=== PATIENT | male | born 1965 | race Caucasian/White ===

== ENCOUNTER 2021-04-02 17:19 | Emergency (ER) | payer OTHER, SELFPAY ==
[2021-04-02 17:20] VITALS: BP 164/87; PULSE 96; RESP 18; TEMP 36.7; O2SAT 98; BMI 40.3
[2021-04-02 18:00] LABS: COVID-19 Test Negative (Negative)
[2021-04-02 18:02] VITALS: BP 151/84; PULSE 92; RESP 16; O2SAT 99
--- NOTE | 2021-04-02 18:28 | ED.GENADULT ---
HPI - General Adult General Chief complaint: Upper Respiratory Symptoms Stated complaint: flu symptoms Time Seen by Provider: 04/02/21 17:55 Source: patient Mode of arrival: ambulatory Limitations: no limitations History of Present Illness HPI narrative: Nasal congestion, shortness of breath, dyspnea exertion, cough, body aches and fatigue. Patient states he has been sick for 2 days. Complains of rhinorrhea and nasal congestion. He states he has had a cough which is productive of thick to thin clear sputum. He states that he feels short of breath at rest and has [id number] dyspnea on exertion. He states that his body aches. He denied rash. Denied tick exposure. States he is feeling fatigued. Patient does have a history of smoking 1/3 pack of cigarettes per day times 34 years. States that he has had bronchitis in the past he has had to use an inhaler in the past as well. The patient received the 2 dose Pfizr COVID-19 vaccination with his 2nd dose being approximately 2-3 weeks prior to evaluation. Related Data Previous Rx's Medication Instructions Recorded albuterol sulfate 2 puff INHALATION Q4-6H PRN #8.5 g 04/02/21 azithromycin [Zithromax Z-Fran] See Rx Instructions .ROUTE 04/02/21 .COMPLEX #6 tab prednisone 60 mg PO DAILY 5 Days #15 tab 04/02/21 Allergies Allergy/AdvReac Type Severity Reaction Status Date / Time No Known Allergies Allergy Unverified 06/06/20 15:35 [No Known Allergies*] Review of Systems Review of Systems: Yes all other systems are reviewed and are negative [facility] Past Medical History [facility] Narrative: Past medical history: None, past surgical history: None. 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 He smokes 1/3 pack of cigarettes per day times 34 years. He denies alcohol use. He denies drug use. Medical History No acute medical problems Surgical History No history of previous surgery Social History Social History Advance Directives: No Advance Directives Information Provided: Yes Physical Exam Vital Signs: Vital Signs: Last Vital Signs Temp 98.1 F 04/02/21 17:20 Pulse 92 04/02/21 18:02 Resp 16 04/02/21 18:02 BP 151/84 H 04/02/21 18:02 Pulse Ox 99 04/02/21 18:02 Body Mass Index 40.3 Const: General: cooperative and healthy appearing Orientation/consciousness: oriented to person and oriented to place Limitations: no limitations HENMT: Head: Yes normal to inspection, Yes normocephalic and Yes atraumatic Ears: external ears normal General nose exam: Normal external nose present Face and sinus: Yes normal facial exam Mouth: Normal oral and palatal mucosa present Throat: Yes posterior oropharynx normal Eyes: Periorbital: periorbital findings normal Eyelids: Yes eyelids normal Conjunctivae: conjunctivae normal Sclerae: sclerae normal Corneas: corneas normal Pupils: Equal, round and reactive pupils present Direct Ophthalmoscopy: normal light reflex Neck: Neck: Yes full ROM, Yes no lymphadenopathy, Yes no meningeal signs, Yes trachea midline and Yes supple Chest: Chest palpation & inspection: normal inspection of the chest and normal palpation of entire chest wall Resp: Effort & Inspection: normal respiratory effort and able to speak in complete sentences Auscultation: rhonchi throughout and wheezes expiratory wheezes and throughout Cardio: Rate: regular rate Rhythm: regular rhythm Heart sounds: S1 normal heart sound present, S2 normal heart sound present and no murmurs GI: Inspection: Yes normal to inspection Palpation (GI): Soft to palpation, nontender, no guarding, not rigid and No hepatosplenomegaly present : General: Yes no CVA tenderness Back/Spine/Pelvis: Back: no CVA tenderness Cervical Spine: normal cervical lordosis Thoracic/Lumbar Spine: thoracic and lumbar spine normal to inspection Skin: Lesions: no lesions Rashes: no rashes Wounds: no wounds Neuro: General: oriented to person, oriented to place and no meningeal signs Cranial nerves: Yes CN's II-XII intact bilaterally and Yes Equal, round and reactive pupils present Cognition (Neuro): normal cognition Motor exam (neuro): 5/5 motor strength present throughout Extrem: General: Yes normal to inspection and Yes full ROM Psych: Appearance: well kempt Mental Status: mental status grossly normal Speech and movement: Normal speech and movement present Affect: normal affect Attitude: cooperative Thought process: Normal thought process present Thought content: Normal thought content present Course Course Course Narrative: 55-year-old male who presents emergency department for evaluation of cough, shortness of breath, dyspnea on exertion, myalgias and fatigue. Patient has been sick for 2 days. Physical examination revealed normal vital signs except for an elevated blood pressure 164/85. Lung exam revealed diffuse wheezing and rhonchi otherwise was unremarkable. Patient's presentation is consistent with a acute bronchitis. Given his smoking history concerned that he may have a bacterial infection therefore he will be treated with Zithromax Z-Farn, prednisone 60 mg once a day for 5 days and albuterol inhaler 2 puffs every 4 hours x1 week. Patient had a negative COVID-19 test. Patient was discharged home. The patient was given verbal and printed instructions prior to discharge. The patient was advised to follow-up with their PCP in 2 days and to return to the emergency department if their symptoms get worse or if they develop any new symptoms that are concerning to them Medical Decision Making Lab Data Labs: Lab Results 04/02/21 Range/Units 17:28 COVID-19 ([facility]) Negative (Negative) COVID-19 Clin Com See Note Discharge Plan Discharge Clinical Impression: Bronchitis Patient Disposition: Home, Self-Care Instructions: Acute Bronchitis (ED) Additional Instructions: Your COVID-19 test was negative. Your symptoms and presentation are consistent with a bacterial bronchitis. Take the antibiotic Zithromax (azithromycin) 2 pills on day 1 then 1 pill each day for 5 days. Take the anti-inflammatory medication prednisone 20 mg pills, 3 pills once a day for 5 days. Use the albuterol inhaler 2 puffs every 4 hours for 1 week. This will help with your wheezing and shortness of breath. Do not take nonsteroidal anti-inflammatory medications such as ibuprofen, Motrin, Aleve, Advil, naproxen while you are taking prednisone. You can take Tylenol (acetaminophen) 500 mg pills, 2 pills every 4 to 6 hours as needed for pain. Follow-up with your doctor in 2 days. Please return to the emergency department if your symptoms get worse or if you develop any symptoms that are concerning to you. Prescriptions: New azithromycin [Zithromax Z-Fran] 250 mg tablet See Rx Instructions .ROUTE .COMPLEX Qty: 6 RF: 0 prednisone 20 mg tablet 60 mg PO DAILY 5 Days Qty: 15 RF: 0 albuterol sulfate 90 mcg/actuation HFA aerosol inhaler 2 puff inhalation Q4-6H PRN (Reason: shortness of breath or wheezing) Qty: 8.5 RF: 0 Stand Alone Forms: Work/School Release
== END 2021-04-02 19:03 | disposition home or self-care (01) ==
PROVIDERS: Emergency Provider Emergency Medicine Emergency Medical Services; PCP Family Medicine
DX: J40 Bronchitis, not specified as acute or chronic (principal); R06.02 Shortness of breath; R05 Cough; M79.10 Myalgia, unspecified site; Z79.899 Other long term (current) drug therapy; Z20.822 Contact with and (suspected) exposure to COVID-19; Z87.891 Personal history of nicotine dependence
CPT/HCPCS: 36415; 87635; 99284

== ENCOUNTER 2021-05-30 08:11 | Outpatient (REF) | payer OTHER, SELFPAY ==
[2021-05-30 09:11] LABS: Appearance Urine CLEAR; Color Urine YELLOW; Glucose Urine UA 250 MG/DL (NEG); Leukocyte Esterase Urine NEG (NEG); Nitrite Urine NEG (NEG); Specific Gravity - Urine >= 1.030 (1.005-1.025); Urine Blood NEG (NEG); Urine Ketones NEG (NEG); Urine Protein 1+ MG/DL (NEG-TRACE)
[2021-05-30 09:33] LABS: Calcium Oxalate Crystals Urine TRACE /LPF; Hyaline Casts Urine 0-2 /LPF; Mucus Urine TRACE /LPF; RBC Urine 0-2 /HPF (0); Squamous Epithelial Cell Urine TRACE /LPF; WBC Urine 0-2 /HPF (0-4)
[2021-05-30 09:38] LABS: Alanine Aminotransferase 32 U/L (0-40); Anion Gap 12 (12-20); Aspartate Amino Transferase 21 U/L (5-37); Blood Urea Nitrogen 11 mg/dL (9-16); Carbon Dioxide 27 mmol/L (22-29); Chloride 102 mmol/L (96-108); Cholesterol 162 mg/dL; Estimated Glomerular Filt Rate > 60; Glucose Fasting 285 mg/dL (60-99); HDL Cholesterol 40 mg/dL; LDL Cholesterol Calculated 108 mg/dl; Potassium 4.7 mmol/L (3.3-5.1); Sodium 136 mmol/L (135-145); Triglycerides 70 mg/dL
[2021-05-30 10:03] LABS: Prostate Specific Antigen 0.48 ng/mL (<0.05-4.0)
== END 2021-05-30 08:12 | disposition home or self-care (01) ==
LOC: HO.LAB 08:11
PROVIDERS: PCP Family Medicine; Visit Provider Family Medicine
DX: Z12.5 Encounter for screening for malignant neoplasm of prostate (principal); E78.00 Pure hypercholesterolemia, unspecified; I10 Essential (primary) hypertension; R35.0 Frequency of micturition; R73.09 Other abnormal glucose
CPT/HCPCS: 36415; 80051; 80061; 81001; 82565; 82947; 84153; 84450; 84460; 84520

== ENCOUNTER 2021-07-31 11:05 | Outpatient (REF) | payer OTHER, SELFPAY ==
[2021-07-31 12:26] LABS: Estimated Average Glucose 203 mg/dL; Hemoglobin A1c % 8.7 %
[2021-07-31 12:42] LABS: Creatinine Urine 152.24 mg/dL; Microalbum/Creatinine Ratio Ur 30.8 ug/mg cr
[2021-07-31 12:44] LABS: Glucose Fasting 145 mg/dL (60-99)
== END 2021-07-31 11:06 | disposition home or self-care (01) ==
LOC: HO.LAB 11:05
PROVIDERS: PCP Family Medicine; Visit Provider Family Medicine
DX: E11.9 Type 2 diabetes mellitus without complications (principal)
CPT/HCPCS: 36415; 82043; 82947; 83036

== ENCOUNTER 2022-05-13 08:30 | Outpatient (REF) | payer OTHER, SELFPAY ==
[2022-05-13 09:15] LABS: Estimated Average Glucose 237 mg/dL; Hemoglobin A1c % 9.9 %
[2022-05-13 09:40] LABS: Anion Gap 14 (12-20); Blood Urea Nitrogen 12 mg/dL (9-16); Carbon Dioxide 22 mmol/L (22-29); Chloride 105 mmol/L (96-108); Estimated Glomerular Filt Rate > 60; Glucose Fasting 292 mg/dL (60-99); Potassium 4.2 mmol/L (3.3-5.1); Sodium 137 mmol/L (135-145)
[2022-05-13 11:41] LABS: Creatinine Urine 253.69 mg/dL; Microalbum/Creatinine Ratio Ur 23.2 ug/mg cr
== END 2022-05-13 08:31 | disposition home or self-care (01) ==
LOC: HO.LAB 08:30
PROVIDERS: PCP Family Medicine; Visit Provider Family Medicine
DX: I10 Essential (primary) hypertension (principal); E11.9 Type 2 diabetes mellitus without complications; E78.00 Pure hypercholesterolemia, unspecified
CPT/HCPCS: 36415; 80051; 82043; 82565; 82947; 83036; 84520

== ENCOUNTER 2023-03-01 10:23 | Day surgery (SDC) | payer OTHER, SELFPAY ==
--- NOTE | 2023-02-26 12:11 | HO.ANESPROP2 ---
Documented by User: Apryl Bernardo NP 02/26/23 12:12 HPI - Anesthesia Eval Consult details Narrative: 57yo M for Upper Endoscopy and Colonoscopy [facility] Past Medical History Medical History (Updated 02/26/23 @ 12:12 by Apryl Bernardo NP) BPH (benign prostatic hyperplasia) Depression Diabetes GERD (gastroesophageal reflux disease) Surgical History Surgical History (Updated 02/26/23 @ 12:12 by Apryl Bernardo NP) H/O removal of cyst Social History Social History Patient Tobacco Use Status: Current everyday Tobacco user Tobacco use type: Cigarette Cigarette Packs Per Day: 0.5 Cigarettes Per Day: 10.0 Years Smoked: 36 Smoked in Last 30 Days: Yes Use of substances other than those prescribed or required for medical reasons: No Are you DNR?: No Advance Directives: No Advance Directives Information Provided: Yes Meds Allergies Allergy/AdvReac Type Severity Reaction Status Date / Time No Known Allergies Allergy Verified 03/01/23 11:01 [No Known Allergies*] Home Medications Medication Instructions Recorded Confirmed Last Taken Type cyclobenzaprine 5 mg tablet 5 mg PO BEDTIME PRN low back pain 02/26/23 03/01/23 Unknown History metformin 1,000 mg tablet 1,000 mg PO BEDTIME 02/26/23 03/01/23 02/27/23 History omeprazole 20 mg capsule,delayed 20 mg PO DAILY 02/26/23 03/01/23 Unknown History release tamsulosin 0.4 mg capsule 0.4 mg PO BEDTIME 02/26/23 03/01/23 Unknown History trazodone 50 mg tablet 25 mg PO DAILY 02/26/23 03/01/23 Unknown History Exam Exam Date and Time: February 26, 2023 1211 Assessment and Plan Assessment Anesthesia Assessment: Chart Reviewed Documented by User: Beverly Bob MD 03/01/23 14:23 [facility] Past Medical History Medical History (Updated 02/26/23 @ 12:12 by Apryl Bernardo NP) BPH (benign prostatic hyperplasia) Depression Diabetes GERD (gastroesophageal reflux disease) Family History Family history of problems with anesthesia: No Surgical History Surgical History (Updated 02/26/23 @ 12:12 by Apryl Bernardo NP) H/O removal of cyst History of Problems with Anesthesia: No Social History Social History Patient Tobacco Use Status: Current everyday Tobacco user Tobacco use type: Cigarette Cigarette Packs Per Day: 0.5 Cigarettes Per Day: 10.0 Years Smoked: 36 Smoked in Last 30 Days: Yes Use of substances other than those prescribed or required for medical reasons: No Are you DNR?: No Advance Directives: No Advance Directives Information Provided: Yes Meds Allergies Allergy/AdvReac Type Severity Reaction Status Date / Time No Known Allergies Allergy Verified 03/01/23 11:01 [No Known Allergies*] Home Medications Medication Instructions Recorded Confirmed Last Taken Type cyclobenzaprine 5 mg tablet 5 mg PO BEDTIME PRN low back pain 02/26/23 03/01/23 Unknown History metformin 1,000 mg tablet 1,000 mg PO BEDTIME 02/26/23 03/01/23 02/27/23 History omeprazole 20 mg capsule,delayed 20 mg PO DAILY 02/26/23 03/01/23 Unknown History release tamsulosin 0.4 mg capsule 0.4 mg PO BEDTIME 02/26/23 03/01/23 Unknown History trazodone 50 mg tablet 25 mg PO DAILY 02/26/23 03/01/23 Unknown History Exam Airway Mallampati Class: III TM Dist: >3cm Neck ROM: Full Loose/Missing/Broken Teeth: No Heart: rr Lungs: cta Assessment and Plan Assessment Anesthesia Assessment: Anesthesia Plan Discussed Final Anesthetic Review Family History of Problems with Anesthesia: No History of Problems with Anesthesia: No NPO: Yes ASA Class: II Final Preanesthetic Review: No Changes in Pt Med Stat, Meds/Allgs Chart Reviewed, Consent Obtained/Reviewed and Anes Risks/Benef Reviewed Patient Risk: Low Procedure Risk: Low Anesthetic Plan Anesthetic Plan: MAC: Disposition: Standard PACU
[2023-03-01 11:02] VITALS: BMI 38.9
[2023-03-01 11:12] LABS: Glucose, Whole Blood 156 mg/dL (60-115)
[2023-03-01 11:19] VITALS: BP 146/77; PULSE 95; RESP 16; TEMP 36.9; O2SAT 98
[2023-03-01] MEDS: Lactated Ringers 1,000 ML 100 ML IVCONT (11:31)
--- NOTE | 2023-03-01 13:30 | PM.OP ---
Brief Operative Note Date of Service: 03/01/23 Pre-op diagnosis: GERD, Screening Post-op diagnosis: other (Hiatal hernia, GERD, Gastritis, Duodenitis, Diverticulosis) Procedure: EGD with biopsies, Colonoscopy to the cecum and TI Surgeon: Adan Walden Anesthesia: MAC Was an Structural Analysis Engineer used for this Procedure?: No Estimated blood loss (mL): 2.0 Pathology: other (A. Gastric antrum B. EG Junction at 36cm) Condition: stable Disposition: PACU
[2023-03-01 13:31] VITALS: BP 101/63; PULSE 89; RESP 16; TEMP 36.4; O2SAT 91
[2023-03-01 13:33] VITALS: O2SAT 100
[2023-03-01 13:46] VITALS: BP 115/76; PULSE 94; RESP 18; TEMP 36.6; O2SAT 97
--- NOTE | 2023-03-01 14:10 | OP_ITS ---
DATE OF SERVICE: 03/01/2023 SURGEON: Adan Walden MD INDICATIONS: The patient presents for evaluation of chronic gastroesophageal reflux and colorectal cancer screening. Full consent has been obtained from him for this, including risks of bleeding and perforation. PREOPERATIVE DIAGNOSIS: Chronic gastroesophageal reflux and colorectal cancer screening. POSTOPERATIVE DIAGNOSIS: PROCEDURE PERFORMED: Esophagogastroduodenoscopy with biopsies and colonoscopy to the cecum and terminal ileum. ESTIMATED BLOOD LOSS: COMPLICATIONS: ANESTHESIA: Monitored anesthesia care. ASSISTANTS: SPECIMENS: POSTOPERATIVE DIAGNOSES: Chronic gastroesophageal reflux and colorectal cancer screening, hiatal hernia, gastritis, duodenitis, diverticulosis, internal hemorrhoids. DESCRIPTION OF PROCEDURE: The patient was placed in the left lateral decubitus position. The Olympus video gastroscope was passed in the posterior oropharynx and upper esophagus under direct vision. The scope was passed slowly into the distal esophagus. The gastroesophageal junction appeared at 38 cm. There was some slight irregularity and erythema, but no evidence of esophagitis nor any definitive evidence of Mccullough esophagus. The scope entered the stomach. There was a small hiatal hernia. The scope was advanced to the pylorus, and the duodenum was cannulated to the descending portion. The duodenum including the bulb was carefully inspected. There was duodenitis in the duodenal bulb with areas of erythema and edema but no ulceration nor mass. The scope was withdrawn back to the stomach. The gastric antrum had areas of edema, erythema, and some friability. There was no ulceration, erosions, nor mass. There was good peristalsis. Biopsies were obtained from the gastric antrum. The scope was retroflexed visualizing the proximal stomach carefully which appeared normal, without any sign of mass or ulceration. The scope was straightened. The scope was withdrawn back in the esophagus. Biopsies were obtained from the gastroesophageal junction at 36 cm. Proximal to this the esophageal mucosa appeared normal. The scope was withdrawn from the patient. He was turned around for the colonoscopy. The digital rectal exam revealed no abnormalities. The Olympus video pediatric colonoscope was entered into the rectum and advanced easily to the cecum. Once in the cecum, I did identify normal-appearing cecal pouch with appendiceal orifice and a normal-appearing ileocecal valve. The terminal ileum was cannulated and appeared normal. Scope was withdrawn back in the colon. The entire cecum and ileocecal valve appeared normal. The scope was then slowly withdrawn assessing all mucosal surfaces carefully. After irrigation and suctioning, preparation was excellent throughout the colon. I did not visualize any sign of polyps, colitis, nor angiodysplasia. There was a mild amount of sigmoid diverticulosis. In the rectum, the scope was retroflexed visualizing small internal hemorrhoids, but no other pathology. The rectal mucosa appeared normal. The scope was straightened and withdrawn from the patient. He tolerated both procedures well and was returned to the recovery area in stable condition. IMPRESSION: 1. Hiatal hernia, gastroesophageal reflux. 2. Gastritis. 3. Duodenitis. 4. Diverticulosis. 5. Internal hemorrhoids. PLAN: The results of the biopsies will be checked. He was advised to continue his omeprazole as that is working well for his reflux. I would recommend a repeat colonoscopy in 10 years for further screening. He was advised not to use any aspirin or NSAIDs for at least 1 week. He will otherwise see me on a p.r.n. basis. MD REMBERTO Mack/GARRETT / [id number]
== END 2023-03-01 14:14 | disposition home or self-care (01) ==
PROVIDERS: PCP Family Medicine; Visit Provider Internal Medicine
PROC: (CPT 45378; principal; 2023-03-01 11:30)
DX: Z12.11 Encounter for screening for malignant neoplasm of colon (principal); K57.30 Diverticulosis of large intestine without perforation or abscess without bleeding; K64.8 Other hemorrhoids; K21.9 Gastro-esophageal reflux disease without esophagitis; K29.50 Unspecified chronic gastritis without bleeding; K29.80 Duodenitis without bleeding; K44.9 Diaphragmatic hernia without obstruction or gangrene; N40.0 Benign prostatic hyperplasia without lower urinary tract symptoms; E11.9 Type 2 diabetes mellitus without complications; F32.A Depression, unspecified; Z79.84 Long term (current) use of oral hypoglycemic drugs; Z79.899 Other long term (current) drug therapy; F17.210 Nicotine dependence, cigarettes, uncomplicated
CPT/HCPCS: 45378; 43239; 82947; 88305; 88342

== ENCOUNTER 2023-12-27 16:08 | Emergency (ER) | payer SELFPAY ==
--- NOTE | ~2023-12-27 | CT_ITS ---
EXAMINATION: CT ABDOMEN AND PELVIS WITHOUT CONTRAST CLINICAL INFORMATION: Left-sided flank pain radiating to the groin. COMPARISON: CT abdomen and pelvis from 11/03/2016. TECHNIQUE: Multidetector volumetric imaging was performed from the lung bases to the pubic without contrast. Sagittal and coronal reformatted images were obtained on the technologist workstation. This CT examination was performed using dose optimization techniques as appropriate, variously including the following: *Automated exposure control. *Adjustment of mA and/or kV according to patient size (this includes techniques or standardized protocols for targeted exams where dose is matched to indication/reason for exam; i.e. extremities or head). *Use of iterative reconstruction technique. DLP: 862 mGy-cm FINDINGS: LUNG BASES: No abnormalities of the visualized lung bases. No demonstrated abnormalities of the visualized cardiac structures. ABDOMEN/PELVIS: Liver, Biliary Ducts, and Gallbladder: The unenhanced liver is normal in size and attenuation without focal hepatic lesions or biliary ductal dilatation. The gallbladder is physiologically distended without radiopaque gallstones, pericholecystic fluid, or significant gallbladder wall thickening. Pancreas: The pancreas is normal in appearance. Adrenal Glands: The adrenal glands are normal in appearance. Spleen: The spleen is normal in appearance. Kidneys and Ureters: The unenhanced kidneys are normal in size. There is a 0.5 cm obstructive stone in the mid left ureter at the level of L4. Associated moderate left-sided hydronephrosis and proximal hydroureter. This stone is positioned 13.7 cm from the cutaneous surface. No demonstrated additional nephrolithiasis. The stomach is not well demonstrated on leaf sorter imaging. No right-sided hydronephrosis/hydroureter. There is a 4.3 cm simple cyst in the interpolar region of the right kidney (no follow-up imaging recommended based on current guidelines at the time of examination). Urinary Bladder: The urinary bladder is partially distended without focal wall thickening. No bladder calculi are demonstrated. Gastrointestinal System: The stomach is decompressed and therefore not well evaluated on this exam. The small bowel is of normal caliber. The colon is normal in appearance without focal wall thickening or pericolonic inflammatory change. Normal appendix. Genitourinary: Coarse calcifications of an otherwise normal-appearing prostate gland. Intra-abdominal and Retroperitoneal Spaces: No intra-abdominal free fluid collections or gas. No mesenteric, retroperitoneal, or inguinal lymphadenopathy. VASCULATURE: The abdominal aorta is of normal contour and caliber with moderate calcific atherosclerotic disease. MUSCULOSKELETAL: Mild to moderate multilevel degenerative changes of the spine. No lytic or sclerotic osseous lesions demonstrated. No soft tissue masses demonstrated. CT/CT abdomen pelvis wo IV con IMPRESSION: Obstructive 0.5 cm stone within the mid left ureter. Moderate left-sided hydronephrosis and proximal hydroureter.
--- NOTE | ~2023-12-27 | US_ITS ---
EXAMINATION: US SCROTUM CLINICAL INFORMATION: Testicular pain. COMPARISON: None available. TECHNIQUE: A sonogram of the scrotum was performed assessing lora-scale appearance and color Doppler flow. Spectral Doppler analysis of the arterial and venous flow were performed in the testes bilaterally. FINDINGS: RIGHT: Right testicle measures 4.8 x 2.3 x 3.5 cm, volume 20 mL. No focal testicular parenchymal lesions are visualized. Multiple testicular cysts. One of the testicular cysts measuring 0.6 x 0.4 x 0.4 cm is complex with low level internal echoes. Spectral Doppler analysis of the arterial and venous flow is normal in the right testis. Right epididymal head is normal in size. No right hydrocele or varicocele is seen. Right epididymal Doppler flow is normal. Multiple small epididymal head cysts. LEFT: Left testicle measures 4.4 x 2.1 x 2.6 cm, volume 13 mL. No focal testicular parenchymal lesions are visualized.Multiple testicular cysts. Spectral Doppler analysis of the arterial and venous flow is normal in the left testis. Left epididymal head is normal in size. No left hydrocele or varicocele is seen. Left epididymal Doppler flow is normal. Multiple small epididymal head cysts. US/US scrotum doppler IMPRESSION: 1. Multiple bilateral testicular cysts. One of the right testicular cysts measuring 0.6 x 0.4 x 0.4 cm is complex with low level internal echoes. 2. Multiple bilateral epididymal head cysts.
--- NOTE | ~2023-12-27 | US_ITS ---
EXAMINATION: US SCROTUM CLINICAL INFORMATION: Testicular pain. COMPARISON: None available. TECHNIQUE: A sonogram of the scrotum was performed assessing lora-scale appearance and color Doppler flow. Spectral Doppler analysis of the arterial and venous flow were performed in the testes bilaterally. FINDINGS: RIGHT: Right testicle measures 4.8 x 2.3 x 3.5 cm, volume 20 mL. No focal testicular parenchymal lesions are visualized. Multiple testicular cysts. One of the testicular cysts measuring 0.6 x 0.4 x 0.4 cm is complex with low level internal echoes. Spectral Doppler analysis of the arterial and venous flow is normal in the right testis. Right epididymal head is normal in size. No right hydrocele or varicocele is seen. Right epididymal Doppler flow is normal. Multiple small epididymal head cysts. LEFT: Left testicle measures 4.4 x 2.1 x 2.6 cm, volume 13 mL. No focal testicular parenchymal lesions are visualized.Multiple testicular cysts. Spectral Doppler analysis of the arterial and venous flow is normal in the left testis. Left epididymal head is normal in size. No left hydrocele or varicocele is seen. Left epididymal Doppler flow is normal. Multiple small epididymal head cysts. US/US scrotum IMPRESSION: 1. Multiple bilateral testicular cysts. One of the right testicular cysts measuring 0.6 x 0.4 x 0.4 cm is complex with low level internal echoes. 2. Multiple bilateral epididymal head cysts.
[2023-12-27 16:52] VITALS: BP 153/85; PULSE 91; RESP 20; TEMP 37.1; O2SAT 98; BMI 37.7
--- NOTE | 2023-12-27 16:55 | ED_ITS ---
HPI - General Adult General Chief complaint: Urogenital-Male Stated complaint: left testicle pain radiating to back Time Seen by Provider: 12/27/23 19:30 Source: patient, RN notes reviewed and old records reviewed Mode of arrival: ambulatory History of Present Illness HPI narrative: 58-year-old male presents for evaluation of left testicular pain. He reports his symptoms started 3 days ago. The pain radiates through to his back. Currently the pain is an 8/10 and stabbing He denies any swelling to the scrotum, redness or skin changes. Denies any difficulty urinating, blood in the urine Denies any fevers, chills. No abdominal pain. No new sexual partners Related Data Home Medications ?Medication ?Instructions ?Recorded ?Confirmed cyclobenzaprine 5 mg tablet 5 mg PO BEDTIME PRN low back pain 02/26/23 03/01/23 metformin 1,000 mg tablet 1,000 mg PO BEDTIME 02/26/23 03/01/23 omeprazole 20 mg capsule,delayed 20 mg PO DAILY 02/26/23 03/01/23 release tamsulosin 0.4 mg capsule 0.4 mg PO BEDTIME 02/26/23 03/01/23 trazodone 50 mg tablet 25 mg PO DAILY 02/26/23 03/01/23 Previous Rx's ?Medication ?Instructions ?Recorded albuterol sulfate 90 mcg/actuation 2 puff inhalation Q4-6H PRN 04/02/21 aerosol inhaler shortness of breath or wheezing #8.5 grams ondansetron 4 mg disintegrating 4 mg PO Q8H PRN nausea and 12/27/23 tablet vomiting #20 tabs oxycodone 5 mg tablet 5 mg PO Q6H PRN severe pain (scale 12/27/23 score 7-10) #12 tabs tamsulosin 0.4 mg capsule (Flomax) 0.4 mg PO DAILY #7 caps 12/27/23 Allergies Allergy/AdvReac Type Severity Reaction Status Date / Time No Known Allergies Allergy Verified 12/27/23 16:53 [No Known Allergies*] Review of Systems 2 Constitutional: Constitutional: Denies body ache(s), Denies chills and Denies fever(s) ENT: Denies sore throat Cardiovascular: Cardiovascular: Denies chest pain and Denies dyspnea Respiratory: Respiratory: Denies cough and Denies dyspnea Gastrointestinal: Gastrointestinal: Denies abdominal pain, Denies nausea and Denies vomiting Genitourinary: Genitourinary: Denies genital lesions, Reports genital pain, Denies dysuria, Reports flank pain, Denies penile discharge, Denies scrotal swelling, Denies testicular mass and Reports testicular pain Musculoskeletal: Musculoskeletal: Reports back pain Integumentary/Breasts: Skin/Breast: Denies rash PMFSH Past Medical History Medical History (Updated 12/27/23 @ 23:21 by Alex Mariano) Depression BPH (benign prostatic hyperplasia) GERD (gastroesophageal reflux disease) Diabetes Surgical History (Updated 02/26/23 @ 12:12 by Apryl Bernardo NP) H/O removal of cyst Social History Social History Patient Tobacco Use Status: Current everyday Tobacco user Tobacco use type: Cigarette Cigarette Packs Per Day: 0.5 Cigarettes Per Day: 10.0 Years Smoked: 36 Advance Directives: No Advance Directives Information Provided: No Physical Exam ED Vital Signs: Vital Signs - 24 hr 12/27/23 16:52 12/27/23 20:26 12/27/23 22:46 Temperature 98.8 F 98.4 F 97.8 F Pulse Rate 91 91 92 Respiratory Rate 20 14 14 Blood Pressure 153/85 H 151/88 H 128/78 Pulse Oximetry 98 99 98 Oxygen Delivery Method Room Air Room Air Room Air BMI result Body Mass Index 37.7 Const General: healthy appearing, comfortable, no acute distress, alert and awake Nutritional Appearance: well nourished Orientation/consciousness: [facility]3 [facility]: Yes normocephalic and Yes atraumatic Eyes Eyelids: Yes eyelids normal Conjunctivae: conjunctivae normal Sclerae: sclerae normal Corneas: corneas normal Pupils: Equal, round and reactive pupils present EOM: EOMs intact bilaterally Neck Neck: Yes full ROM Resp Effort & Inspection: normal respiratory effort, able to speak in complete sentences and not labored GI Inspection: No distended Palpation (GI): Soft to palpation, not firm, nontender, no guarding and not rigid Other: No palpable inguinal hernia Penis: normal penis Meatus: meatus normal, no meatla discharge and No Blood at meatus present Scrotum: scrotum normal, no ecchymosis, not edematous, not erythematous, no masses and no scrotal swelling Testes: not enlarged, no epidiymal masses, no epidiymal tenderness, no testicular mass, no testicular swelling and no testicular tenderness Skin General skin exam: elasticity normal Neuro General: patient oriented x3 Cranial nerves: Yes Equal, round and reactive pupils present and Yes Bilaterally intact EOM present Cognition (Neuro): normal cognition Extrem Other: Moving all extremities well without any obvious deformities Course Course Course Narrative: RME: 58-year-old male presents ED for left testicular pain for 1 week without any trauma. Patient denies any penile discharge or penile lesions. Patient denies any abdominal pain. Labs ultrasound ordered. Reevaluation(s) Reevaluation #1: Patient's CT scan shows an obstructing 5 mm stone in the left mid ureter. This is more likely to cause the patient's significant pain rather than the testicular cyst. I explained this to the patient. The patient's urine is totally clear, no evidence of blood or infection, his renal function was within normal limits. The patient can still safely be discharged home. Time: 23:18 Medications Administered Discontinued Medications Generic Name Dose Route Start Last Admin Trade Name Freq PRN Reason Stop Dose Admin Ibuprofen 600 mg 12/27/23 19:41 12/27/23 19:48 Ibuprofen 600 Mg Tablet PO 12/27/23 19:42 600 mg ONCE ONE Administration Medical Decision Making Medical Decision Making [facility] Narrative: 58-year-old male presents for evaluation of left testicular pain. He has an unremarkable physical exam. His labs show no evidence of leukocytosis or left shift. Chemistry shows normal renal function, electrolytes within normal limits. Scrotal ultrasound which did not show any evidence of torsion. There is normal arterial. There were bilateral testicular and epididymal cysts. No evidence epididymitis. Patient's gonorrhea and chlamydia testing was negative. Given the level of the patient's reported pain, we will get a CT scan of the abdomen pelvis to evaluate for other pathology. There are no signs of infectious pathology Differential Diagnosis Differential Diagnoses: The differential diagnosis associated with the presentation includes Hydrocele Varicocele Inguinal hernia Obstructive uropathy Pyelonephritis Cystitis Gume's gangrene Scrotal cellulitis Lab Data [facility] Lab Attestation statement: I reviewed the patient's lab results. See above 12/27/23 17:10 12/27/23 17:10 Labs: Lab Results 12/27/23 Range/Units 17:10 WBC 9.9 (4.8-10.8) X10*3/uL RBC 4.98 (4.60-5.80) X10*6/uL Hgb 15.6 (14.0-18.0) g/dl Hct 43.2 (42.0-52.0) % MCV 86.7 (80.0-98.0) fL MCH 31.3 (27.0-33.0) pg MCHC 36.1 H (31.0-36.0) g/dl RDW 12.3 (11.0-16.0) % Plt Count 270 (160-400) X10*3/uL MPV 9.9 (9.4-12.4) fL Immature Gran % (Auto) 0.4 (0.0-0.4) % Neut % (Auto) 45.4 (45-73) % Lymph % (Auto) 45.6 H (20-40) % [place] % (Auto) 6.2 (2-11) % Eos % (Auto) 1.7 (0-4) % Baso % (Auto) 0.7 (0-2) % Lymph # (Auto) 4.5 (1.2-4.9) X10*3/uL [place] # (Auto) 0.6 (0.1-1.2) X10*3/uL Eos # (Auto) 0.2 (0.0-0.4) X10*3/uL Baso # (Auto) 0.1 (0.0-0.2) X10*3/uL Abs Immat Gran (auto) 0.04 H (0.00-0.03) X10*3/uL Absolute Neuts (auto) 4.5 (2.0-8.3) x10*3/uL Absolute Nucleated RBC 0.000 (0.0-0.012) X10*3/uL Nucleated RBC % (auto) 0.0 (0.0-0.2) /100WBC Smear Tech's Comments VERIFIED Sodium 137 (135-145) mmol/L Potassium 4.1 (3.3-5.1) mmol/L Chloride 105 (96-108) mmol/L Carbon Dioxide 26 (22-29) mmol/L Anion Gap 10 L (12-20) BUN 10 (9-16) mg/dL Creatinine 0.90 (0.5-1.4) mg/dL Estim Creat Clear Calc 111.5 Estimated GFR > 60 Random Glucose 174 H (60-115) mg/dL Calcium 10.6 H (8.4-10.2) mg/dL Total Bilirubin 0.3 (0.0-1.0) mg/dL AST 18 (5-37) U/L ALT 24 (0-40) U/L Alkaline Phosphatase 128 H (39-117) U/L Total Protein 8.2 H (6.5-8.0) g/dL Albumin 4.1 (3.5-5.0) g/dL Urine Color Yellow Urine Appearance Clear Urine pH 6.0 (5.0-9.0) Ur Specific [place] 1.015 (1.005-1.025) Urine Protein Negative (Neg-Trace) mg/dL Urine Glucose (UA) Negative (Negative) mg/dL Urine Ketones Negative (Negative) mg/dL Urine Blood Negative (Negative) Urine Nitrite Negative (Negative) Ur Leukocyte Esterase Negative (Negative) Chlam trachomat DNA PCR NOT DETECTED (Not Detect.) N.gonorrhoeae DNA (PCR) NOT DETECTED (Not Detect.) Radiology Impression Discussion of test interpretation with radiology: I have reviewed the radiologist's reading. Radiologist Impression: IMPRESSION: 1. Multiple bilateral testicular cysts. One of the right testicular cysts measuring 0.6 x 0.4 x 0.4 cm is complex with low level internal echoes. 2. Multiple bilateral epididymal head cysts. Discharge Plan Discharge Clinical Impression: Left testicular pain, Kidney stone on left side Patient Disposition: Home, Self-Care Instructions: Kidney Stones (ED) Additional Instructions: As discussed, your ultrasound showed cysts on both testicles. These do not appear to be infectious and are likely not the cause of your pain You also have a 5 mm kidney stone on the left side This should pass on its own. Take Flomax daily for the next 7 days. Use ibuprofen/Tylenol as needed for pain You may use oxycodone for more severe, breakthrough pain This may make you sleepy, do not drink alcohol or drive after taking it Use Zofran as needed for nausea/vomiting You may follow-up with Dr. Caldera regarding the testicular cysts and the kidney stones Prescriptions: New ondansetron 4 mg tablet,disintegrating 4 mg PO Q8H PRN (Reason: nausea and vomiting) Qty: 20 0RF tamsulosin [Flomax] 0.4 mg capsule 0.4 mg PO DAILY Qty: 7 0RF oxycodone 5 mg tablet 5 mg PO Q6H PRN (Reason: severe pain (scale score 7-10)) Qty: 12 0RF Rx Instructions: Partial Fill upon patient request. No Action albuterol sulfate 90 mcg/actuation HFA aerosol inhaler 2 puff inhalation Q4-6H PRN (Reason: shortness of breath or wheezing) Qty: 8.5 0RF trazodone 50 mg tablet 25 mg PO DAILY tamsulosin 0.4 mg capsule 0.4 mg PO BEDTIME metformin 1,000 mg tablet 1,000 mg PO BEDTIME omeprazole 20 mg capsule,delayed release(DR/EC) 20 mg PO DAILY cyclobenzaprine 5 mg tablet 5 mg PO BEDTIME PRN (Reason: low back pain) Referrals: Jones Caldera MD [Physician] - (Testicular cysts, left obstructive uropathy) Stand Alone Forms: Work/School Release Print Language: Polish
[2023-12-27 17:19] LABS: Basophils Absolute Auto 0.1 X10*3/uL (0.0-0.2); Basophils Percent Auto 0.7 % (0-2); Eosinophils Absolute Auto 0.2 X10*3/uL (0.0-0.4); Eosinophils Percent Auto 1.7 % (0-4); Hematocrit 43.2 % (42.0-52.0); Hemoglobin 15.6 g/dl (14.0-18.0); Imm Gran Abs Auto 0.04 X10*3/uL (0.00-0.03); Imm Gran Pct Auto 0.4 % (0.0-0.4); Lymphocytes Absolute Auto 4.5 X10*3/uL (1.2-4.9); Lymphocytes Percent Auto 45.6 % (20-40); MANUAL DIFF FLAG SCAN; Mean Corpuscular HGB Conc 36.1 g/dl (31.0-36.0); Mean Corpuscular Hemoglobin 31.3 pg (27.0-33.0); Mean Corpuscular Volume 86.7 fL (80.0-98.0); Mean Platelet Volume 9.9 fL (9.4-12.4); Monocytes Absolute Auto 0.6 X10*3/uL (0.1-1.2); Monocytes Percent Auto 6.2 % (2-11); Neutrophils Absolute Auto 4.5 x10*3/uL (2.0-8.3); Neutrophils Percent Auto 45.4 % (45-73); Platelet Count 270 X10*3/uL (160-400); Red Blood Count 4.98 X10*6/uL (4.60-5.80); Red Cell Distribution Width 12.3 % (11.0-16.0); SCAN SMEAR FLAG 1; White Blood Count 9.9 X10*3/uL (4.8-10.8)
[2023-12-27 17:22] LABS: Appearance Urine Clear; Color Urine Yellow; Glucose Urine UA Negative (Negative); Leukocyte Esterase Urine Negative (Negative); Nitrite Urine Negative (Negative); Specific Gravity - Urine 1.015 (1.005-1.025); Urine Blood Negative (Negative); Urine Ketones Negative (Negative); Urine Protein Negative (Neg-Trace)
[2023-12-27 17:35] LABS: Alanine Aminotransferase 24 U/L (0-40); Albumin Level 4.1 g/dL (3.5-5.0); Alkaline Phosphatase 128 U/L (39-117); Anion Gap 10 (12-20); Aspartate Amino Transferase 18 U/L (5-37); Bilirubin Total 0.3 mg/dL (0.0-1.0); Blood Urea Nitrogen 10 mg/dL (9-16); Calcium 10.6 mg/dL (8.4-10.2); Carbon Dioxide 26 mmol/L (22-29); Chloride 105 mmol/L (96-108); Creatinine Clr Calc Pharmacy 111.5; Estimated Glomerular Filt Rate > 60; Glucose Random 174 mg/dL (60-115); Potassium 4.1 mmol/L (3.3-5.1); Sodium 137 mmol/L (135-145); Total Protein 8.2 g/dL (6.5-8.0)
[2023-12-27 17:42] LABS: SLIDE REVIEW VERIFIED
[2023-12-27 18:52] LABS: CT PCR NOT DETECTED (Not Detect.); NG PCR NOT DETECTED (Not Detect.)
[2023-12-27] MEDS: Ibuprofen 600 MG TABLET PO (19:48)
[2023-12-27 20:26] VITALS: BP 151/88; PULSE 91; RESP 14; TEMP 36.9; O2SAT 99
[2023-12-27 22:46] VITALS: BP 128/78; PULSE 92; RESP 14; TEMP 36.6; O2SAT 98
[2023-12-27 23:38] VITALS: BP 128/78; PULSE 92; RESP 14; TEMP 36.6; O2SAT 98
== END 2023-12-27 23:39 | disposition home or self-care (01) ==
PROVIDERS: Physician Assistant; Emergency Provider Emergency Medicine; PCP Family Medicine
DX: N20.1 Calculus of ureter (principal); N50.812 Left testicular pain; E11.9 Type 2 diabetes mellitus without complications
CPT/HCPCS: 0353U; 36415; 74176; 76870; 80053; 81003; 85025; 93975; 99284

== ENCOUNTER 2024-12-22 11:03 | Outpatient (REF) | payer OTHER, SELFPAY ==
[2024-12-22 11:32] LABS: MANUAL DIFF FLAG NO
[2024-12-22 12:19] LABS: Basophils Absolute Auto 0.1 X10*3/uL (0.0-0.2); Basophils Percent Auto 0.9 % (0-2); Eosinophils Absolute Auto 0.1 X10*3/uL (0.0-0.4); Eosinophils Percent Auto 1.8 % (0-4); Hematocrit 45.6 % (42.0-52.0); Hemoglobin 16.2 g/dl (14.0-18.0); Imm Gran Abs Auto 0.03 X10*3/uL (0.00-0.03); Imm Gran Pct Auto 0.4 % (0.0-0.4); Lymphocytes Absolute Auto 3.3 X10*3/uL (1.2-4.9); Lymphocytes Percent Auto 42.8 % (20-40); Mean Corpuscular HGB Conc 35.5 g/dl (31.0-36.0); Mean Corpuscular Hemoglobin 30.7 pg (27.0-33.0); Mean Corpuscular Volume 86.4 fL (80.0-98.0); Mean Platelet Volume 10.3 fL (9.4-12.4); Monocytes Absolute Auto 0.5 X10*3/uL (0.1-1.2); Monocytes Percent Auto 6.5 % (2-11); Neutrophils Absolute Auto 3.6 x10*3/uL (2.0-8.3); Neutrophils Percent Auto 47.6 % (45-73); Platelet Count 276 X10*3/uL (160-400); Red Blood Count 5.28 X10*6/uL (4.60-5.80); Red Cell Distribution Width 12.5 % (11.0-16.0); White Blood Count 7.6 X10*3/uL (4.8-10.8)
[2024-12-22 12:54] LABS: Estimated Average Glucose 240 mg/dL; Hemoglobin A1C 364.3007 umol/L; Total Hemoglobin (HGBA1C) 4219.7617 umol/L
[2024-12-22 12:56] LABS: Alanine Aminotransferase 24 U/L (0-40); Albumin Level 4.1 g/dL (3.5-5.0); Alkaline Phosphatase 143 U/L (39-117); Anion Gap 11 (12-20); Aspartate Amino Transferase 22 U/L (5-37); Bilirubin Total 0.7 mg/dL (0.0-1.0); Blood Urea Nitrogen 11 mg/dL (9-16); Calcium 9.7 mg/dL (8.4-10.2); Carbon Dioxide 24 mmol/L (22-29); Chloride 107 mmol/L (96-108); Estimated Glomerular Filt Rate > 60; Glucose Fasting 208 mg/dL (60-99); Potassium 3.7 mmol/L (3.3-5.1); Sodium 138 mmol/L (135-145); Total Protein 7.5 g/dL (6.5-8.0)
[2024-12-22 12:57] LABS: Erythrocyte Sedimentation Rate 5 MM/HR (0-15)
--- OUTSIDE RECORDS SUMMARY | 2024-12-22 12:57 | XMS_ITS | Patient Health Record ---
Author Organization [facility] Address [address] [place] [id number] Care Team Providers Care Firmware Test Engineer Name Role Phone Kenney MEZA, Deng Primary Care Provider Adan Weiss Unavailable [phone] Allergies No Known Allergies Reason For Referral No Information Medications Medication SIG (Take, Route, Frequency, Duration) Notes Start Date End Date Status Cyclobenzaprine HCl 5 MG Oral for 30 Active metFORMIN HCl 1000 MG Oral for 90 Active Tamsulosin HCl 0.4 MG Oral for 90 Active Omeprazole 20 MG Oral for 90 A ctive traZODone HCl 50 MG Oral for 30 Active Immunizations Vaccine Route Administration Date Status Comme nts Influenza Unknown 07/07/2022 Administered Social History Tobacco Use: Social History Observation Description Date Details (start date - stop date) Current Smoker NA - NA Tobacco Use/Smoking Question Answer Notes Patient is a current smoker Alcohol Screen Question Answer Notes Did you have a drink containing alcohol in the p ast year? No Points 0 Interpretation Negative Section Notes: Smokes 1/2 ppd, no sig alcoh ol Problems Problem Type SNOMED Code ICD Code Onset Dates Problem Status W/U Status Risk Notes Problem 152636425 Colon cancer screening (Z12.11) Active confirmed Problem Diverticular disease of colon (454224680) Diverticulosis of large intestine without perforation or abscess without bleeding (K57.30) Active confirmed Problem Duodenitis (96253327) Duodenitis (K29.80) Active confirmed Problem Gastroesophageal reflux disease (576752137) Gastroesophageal reflux disease (K21.9) Active confirmed Problem Gastritis (7779863) Gastritis (K29.70) Active c onfirmed Problem 633792321 Gastroesophageal reflux disease, unspecified whether esophagitis present (K21.9) Active confirmed Plan Of Treatment Future Test Test Name Order Date UPPER GI ENDOSCOPY 01/13/2023 COLONOSCOPY 01/13/2023 Insurance Providers Payer Name Payer Address Payer Phone Subscriber Number Group Number Insured Name Patient Relationship to Insured Coverage Start Date Coverage End Date [facility] [facility] [employer] INDEMNITY [address] [place] [address] [id number] ROSIO NIXON Self - patient is the insured Medical (General) History Medical History History ICD Code NIDDM GERD BPH Depression since his 's Denies [place],CVA,Lung disease,renal disease Acne Surgical History Surgery Date(Month/Year) Cysts
[2024-12-22 13:51] LABS: Creatinine Urine 412.85 mg/dL
== END 2024-12-22 11:04 | disposition home or self-care (01) ==
LOC: HO.LAB 11:03
PROVIDERS: PCP Family Medicine; Visit Provider Family Medicine
DX: E11.9 Type 2 diabetes mellitus without complications (principal); R63.4 Abnormal weight loss; K21.9 Gastro-esophageal reflux disease without esophagitis
CPT/HCPCS: 36415; 80053; 82043; 82570; 83036; 85025; 85652